=== PATIENT | female | born 2005 | race Caucasian/White ===

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

== ENCOUNTER 2024-08-09 17:02 | Emergency (ER) | payer OTHER, SELFPAY ==
--- NOTE | 2024-08-09 17:06 | ED.URI ---
HPI - URI/Sore Throat General Chief Complaint: Unspecified Stated Complaint: light headed / dizzy Time Seen by Provider: 08/09/24 17:05 Source: patient Mode of arrival: ambulatory Limitations: no limitations History of Present Illness HPI Narrative: Radhika is a 19 year old female patient presenting to the clinic today with c/o lightheadedness and dizziness x1 day. She reports symptoms started yesterday and she got worse this morning. Just started taking mifepristone yesterday at planned parent tenng[facility] to abort her 9 week 2 day . Denies any abdomen pain, pelvic pain, vaginal discharge, or bleeding. Has had a headache x 1 week and muscle tightness in her mid upper back. Is under a lot of stress. Denies any fever, chills, or body aches but, feels lightheaded and fatigue. Did have some nausea/vomiting but that came with her . No vomiting recently. Denies any urinary symptoms or uri symptoms. No chest pain or shortness of breath. No history of migraine headache. Has been taken Tylenol for the head ache without relief. Related Data Home Medications ?Medication ?Instructions ?Recorded ?Confirmed ?Last Taken ?Type alprazolam 0.5 mg tablet mg 08/09/24 Unknown History fluoxetine 10 mg capsule mg 08/09/24 Unknown History Allergies Allergy/AdvReac Type Severity Reaction Status Date / Time No Known Allergies Allergy Verified 08/09/24 17:18 Review of Systems Review of Systems: Pertinent positives per HPI. Patient denies any fever, chills, rash, visual changes, dizziness, cough, runny nose, sore throat, shortness of breath, chest pain, palpitations, diarrhea, constipation, abdominal pain, or any urinary issues. PMFSH Comments At the time of my signature, I reviewed and agree with the nursing past medical, surgical, social, and family history. There is no relevant family history pertinent to the patient complaint. Exam Narrative: General: Well-developed, well nourished, in no apparent distress Head: Normocephalic, atraumatic Eyes: Pupils equally round and reactive to light bilaterally, EOM intact, sclera and conjunctive clear, no discharge, lids normal Ears: TMs intact and clear, ear canals clear, no drainage, grossly hearing normal. Nose: Nares patent, no discharge, no inflammation, no sinus tenderness. Mouth: Oropharynx without lesions or masses, good dentition, MMM. Tongue midline, even rise and fall of uvula Neck: Supple, trachea midline, no enlargement of anterior or posterior cervical nodes, no thyroid masses or goiter palpable. Cardio: Regular rate and rhythm, s1 and s2 normal, no murmur appreciated. Resp: Clear to auscultation bilaterally anteriorly and posteriorly, no rhonchi, rales, wheezing or rubs Abdomen: Soft, pliable, nondistended, bowel sounds present all 4 quadrants, nontender to palpation, no organomegaly, no CVAT tenderness Musculoskeletal: No deformity, non-tender to palpation, grossly normal range of motion, muscle strength strong and equal, peripheral pulse strong, no edema, no cyanosis, normal gait and station Neuro: Alert and oriented x4 with normal speech, no focal deficits, cranial nerves I through XII intact, muscle strength 5 out of 5, sensation intact bilaterally, negative Romberg test Course Course Emergency Course: Portions of this record may have been created with voice recognition software. Level of Care: Express Care Visit Vital Signs Vital signs: Vital Signs Temperature 36.1 C L 08/09/24 17:18 Pulse Rate 92 08/09/24 17:18 Respiratory Rate 15 08/09/24 17:18 Blood Pressure 117/70 08/09/24 17:18 Pulse Oximetry 100 08/09/24 17:18 Oxygen Delivery Room Air 08/09/24 17:18 Temperature 36.1 C L 08/09/24 17:18 Pulse Rate 91 08/09/24 17:48 Respiratory Rate 15 08/09/24 17:18 Blood Pressure 113/68 08/09/24 17:48 Pulse Oximetry 100 08/09/24 17:18 Oxygen Delivery Room Air 08/09/24 17:18 Vital signs reviewed MDM - URI/Sore Throat MDM Narrative Medical decision making narrative: At the time of visit patient is resting comfortably on the exam table. Patient appears to be nontoxic. Labs: Blood sugar was 92 in the clinic today, U/A dip shows a trace of bacteria. We will send for culture Orthostatics B/Ps: Lying blood pressure was 112/58 with heart rate of 75, Sitting blood pressure was 117/67 with heart rate 79, Standing blood pressure was 113/68 with heart rate of 91 Plan: Her symptoms are likely side effects being caused by the mifepristone. Also she is under a lot of stress that can be causing the headache/muscle tension. Neuro checks are normal. VS are stable. She denies any CP/SOB/visual changes. No URI symptoms or ear infection. Denies any vaginal bleeding, cramping, abdomen pain, or low back pain. Supportive measures were discussed with the patient and they voiced understanding discharge instructions and agrees to treatment plan. Return precautions reviewed Differential Diagnosis Differential diagnosis: Likely upper respiratory infection, sinusitis and other (Dizziness, weakness, fatigue, side effects from medication, dehydration) Lab Data Labs: Lab Results 08/09/24 08/09/24 Range/Units 17:39 18:02 POC Capillary Glucose 92 (65-105) mg/dl POC Urine Color Dark POC Urine Clarity Cloudy POC Urine pH 6.0 POC Ur Specif [place] 1.030 POC Urine Protein Negative (Negative) POC Ur Glucose (UA) Negative (Negative) POC Urine Ketones Negative (Negative) POC Urine Blood Negative (Negative) POC Urine Nitrite Negative (Negative) POC Urine Bilirubin Negative (Negative) POC Urine Urobilinogen 0.2 POC U Leukocyte Esteras Trace (Negative) Discharge Plan Discharge Clinical Impression: Dizziness Acute tension headache Qualifiers: Intractability: not intractable Qualified Code(s): G44.209 - Tension-type headache, unspecified, not intractable Fatigue Qualifiers: Fatigue type: unspecified Qualified Code(s): R53.83 - Other fatigue Patient Disposition: Home, Self-Care Condition: Stable Instructions: Antibiotic Form, Tension Headache (ED), Dizziness (ED) Additional Instructions: The mifepristone medication may be causing her symptoms Neuro exam is normal in the clinic today Blood sugar was 92 which is within normal limits Orthostatic blood pressures were within normal limits Urinalysis shows a trace of bacteria. Will send for culture if this comes back positive we will contact him place you on antibiotics at that time Take medications as prescribed-naproxen as needed for the headache and meclizine as needed for dizziness Increase fluids and stay well hydrated Change positions slowly when going from a lying to sitting/send a to standing position Eat well-balanced meals Follow-up with your primary care doctor next week if symptoms persist May go to the emergency room if symptoms worsen. Patient Language: Citizen Of [place] Prescriptions: New naproxen 500 mg tablet 500 mg PO BID PRN (Reason: pain) 7 Days Qty: 14 0RF meclizine 25 mg tablet 25 mg PO TID PRN (Reason: dizziness) 7 Days Qty: 21 0RF No Action alprazolam 0.5 mg tablet fluoxetine 10 mg capsule Follow-up/Referrals: UNKNOWN,DOCTOR [Non-Staff] - Time of Disposition: 18:08 Quality NIHSS Nursing Documentation ED NIHSS nursing documentation: reviewed/agree
--- OUTSIDE RECORDS SUMMARY | 2024-08-09 17:09 | XMS_ITS | Clinical Summary ---
Author Organization [facility] Address [address] [place] [address] Care Team Providers Care Ux Designer Name Role Phone Grace Dickinson Primary Care Provider [phone] Allergies No known active allergies Medications vitamin ferrous fumarate-folic () 28 mg iron- 800 mcg tablet Take 1 tablet by mouth daily 30 tablet 09/20/19 24 025 Active pyridoxine (VITAMIN B6) 25 mg tablet Take 1 tablet (25 mg total) by mouth daily 90 tablet 1 09/20/19 24 025 Active ondansetron ODT (ZOFRAN-ODT) 4 mg disintegrating tablet Take 1 tablet (4 mg total) by mouth every 8 (eight) hours as needed for nausea or vomiting 20 tablet 1 09/20/19 24 Active Vitamin Plus Low Iron 27 mg iron- 1 mg tablet Take 1 tablet by mouth daily 09/21/19 24 Active famotidine (PEPCID) 20 mg tabletIndications: Gastroesophageal reflux disease without esophagitis Take 1 tablet (20 mg total) by mouth 2 (two) times a day 60 tablet 11/13/19 24 025 Active acetic acid-hydrocortison e otic solution Administer 2 drops into the right ear 2 (two) times a day 10 mL 1 01/17/20 24 Active Additional Information Patient not taking.Reported on 02/21/2024 hydrOXYzine (ATARAX) 25 mg tabletIndications: anxiety Take 1 tablet (25 mg total) by mouth 3 (three) times a day as needed for anxiety 30 tablet 1 03/17/20 24 Active senna-docusate (PERICOLACE) 8.6-50 mg Take 1 tablet by mouth daily Do not take if having diarrhea 30 tablet 03/17/20 24 Active polyethylene glycol (MIRALAX) 17 gram/dose bulk powder Take 17 g by mouth daily As needed to have one bowel movement daily. 510 g 03/17/20 24 Active ibuprofen (ADVIL,MOTRIN) 600 mg tabletIndications: Pain Take 1 tablet (600 mg total) by mouth every 6 (six) hours as needed for pain for up to 30 doses 30 tablet 03/17/20 24 Active acetaminophen (TYLENOL) 500 mg tablet Take 2 tablets (1,000 mg total) by mouth every 6 (six) hours as needed for pain for up to 30 doses 60 tablet 03/17/20 24 Active escitalopram (LEXAPRO) 5 mg tabletIndications: Generalized Anxiety Disorder Take 1 tablet (5 mg total) by mouth daily 30 tablet 1 04/05/20 24 Active labetaloL (NORMODYNE,TRANDAT E) 200 mg tablet Take 2 tablets (400 mg total) by mouth 2 (two) times a day 120 tablet 1 04/05/20 24 025 Active FLUoxetine (PROzac) 20 mg capsule Take 1 capsule (20 mg total) by mouth daily 30 capsule 08/09/19 25 026 Active Active Problems Problem Noted Date Diagnosed Date Encounter for routine follow-up 04/02 Overview (04/02/2024): -Continue limited physical activity and pelvic rest. -Mood- Stable and adjusting well Discussed s/s of baby blues, depression, & anxiety; Encouraged to call provider with any mood changes or concerns. -Contraception- Declined conversation today; Patient would like to discuss further at 6 week visit -F/U- RTC for 6 week appt 04/25/24 care following vaginal delivery 03/15 Overview (03/17/2024): # ID: Afebrile. No signs/symptoms of infection. # Enterobacter cloacae UTI in 2T, JONATHAN CIS # Heme: EBL 300 mL. Hemodynamically stable. gTCP: platelets stable, most recently 130k prior to discharge # Chest pain- >2yrs of chronic chest pain. S/p stress treadmill test (negative 07/2023) and normal echo 09/2023. Saw cardiology (Dr. Lopez) on 03/11/24 who recommended additional echo but unable to facilitate during admission. Information provided to patient on discharge to schedule echo as outpatient. EKG 03/17 NSR. # CV/Pulm: Chronic hypertension - Blood pressures well controlled on no meds. Asymptomatic, denies WINTERS/RUQ pain/vision changes. Baseline CBC/CMP wnl, UPC 0.118 on 02/01. Enrolled in home BP. # Anxiety: not on meds. Prescribed atarax 25mg prn on discharge. # GI/: Tolerating PO. Voiding spontaneously. # Pain: Controlled with above regimen. # MOC: Undecided on contraception after counseling, to discuss at 6wk PP visit. Declines EC. # MOF: Both formula and . Urine drug screen not indicated. Patient informed of results: N/A. # Post DVT prophylaxis: The patient has the following MAJOR risk factors none and the following MINOR risk factors BMI 30-39. SCDs ordered for VTE prophylaxis. # Disposition: Follow up task sent. Plan for discharge today. Encounter for induction of labor 03/13/2024 Overview (03/13/2024): Radhika Qureshi is a 18 y.o. female at 39w0d who is dated by L=1 and is being admitted for an induction of labor secondary to cHTN . Admit to L&D: Labs: CBC and T&S pending. Induction of labor with miso>FB . FWB: Continuous monitoring. tracing category I. ID: 3rd trimester HIV (>28 wga) negative on 02/14/24. GBS bacteruria 06/2023, will start PCN. RPR on admission: pending. History of genital HSV or HSV 1/2 seropositivity: No. Membrane Status: intact. Indications for UDS: none. Verbal consent obtained for UDS: Not indicated. MOF: Plans to both breast and formula feed. Urine drug screen not indicated. Patient informed of results: N/A. MOC: Undecided on contraception after counseling, to discuss at 6wk PP visit. Pain management: Desires epidural. Post DVT prophylaxis: The patient has the following MAJOR risk factors none and the following MINOR risk factors BMI 30-39. SCDs will be ordered for VTE prophylaxis . 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 S/p stress treadmill test (negative 07/2023) and normal echo 09/2023. Saw cardiology (Dr. Lopez) on 03/11/24 who recommended additional echo but unable to facilitate scheduling prior to admission. Abdominal pain 01/03/2024 Overview (01/03/2024): - Reports left-sided generalized abdominal tightening, now resolved - Worse after being outside in summer - Also reporting sciatic nerve pain down leg - UA unremarkable, no reflex to culture - SVE .5/lg/hi Plan - SVE reassuring in clinic. Reviewed BH contractions vs [facility] precautions (no improvement with rest, hydration and Tylenol). - Discussed staying hydrated in heat, using APAP, belly band and heat packs on back for sciatic pain. - Reviewed return precautions Ear pain, right 01/03/2024 Overview (01/17/2024): - Reports one day of right ear pain - Exam with e/o wax and small scab. - Reviewed not using Q-tips and avoiding trauma to canal. - No c/f middle ear infection 01/16- Reports persistent right ear pain. Drops for acetic acid and hydrocortisone sent. Chronic hypertension affecting 10/18/ 024 Overview (02/21/2024): Per chart review: 09/17 BP in [place] 144/78 -10/18: BP 142/75, repeat manual 130/70. Pt now meeting criteria for cHTN in diagnosis. Protocol initated. - 01/01: Reports BPs well controlled (<140/<90) Counseling date: 10/18 CURRENT REGIMEN: ASA 81 mg daily until delivery Maternal Surveillance: [x] Baseline Plt:182 K+:3.7 Cr: 0.64 ALT/AST: [x] Urine Protein/Creatinine Ratio: 10/18 [x] Baseline ECG with consideration of ECHO: (consider ECHO if diagnosed >4y rs or >30 yo) [] Ophthalmology referral: [x] Provide blood pressure cuff at initial visit with calibration (within 20 mm Hg of manual BP in clinic), blood pressure log given - call clinic if BP >140/90. Review log each visit. [x] Educated on ASA 81 mg daily 12 weeks until delivery. 01/30- Rx resent. Encouraged ASA daily remainder of . Surveillance: [x] Serial Growth ultrasounds every 4 weeks-start at 24 weeks. (Ordered) 02/13: EFW 2357g(24%) AGA [] Once Weekly NSTs starting at 32 weeks if on AntiHTN Agent (IF Ultrasound scheduled can do BPP that week instead). [x] Delivery at 39 weeks - scheduled 03/13 @ 1999 Cystic fibrosis carrier 10/02/2023 Overview (11/13/2023): -Referred to OB genetic counselor, recommend partner screening Partner testing negative Carrier of spinal muscular atrophy 10/02/2023 Overview (11/13/2023): -Referred to OB genetic counselor, recommend partner screening Partner testing negative. Bacteriuria 09/20/2023 Overview (02/19/2024): -09/19: +nitrites on UA, trace leuks. Asymptomatic. Urine culture ordered. +enterbacter cloacae complex. -Rx Bactrim DS BID x 5 days 10/18: JONATHAN CIS 01/02: UA nl [x] obtain 3T UCx - contaminated Supervision of normal first , antepartu m 08/21/2023 Overview (03/11/2024): Plan -PNV daily. Encouraged ASA. -WAC precautions reviewed 1st Trimester: [x] Dating Criteria: 1TUS @ 9w1d [x] Labs: T&S (Ab):A+(neg) H/H:12.4/36.2 Rubella:imm VZV:imm HIV:neg RPR:neg Hep B:neg Hep C:neg [x] HgbA1c: 4.9 [] NG/CT/Trich: [x] UCx: Enterobacter cloacae complex [] Hgb electrophoresis: Date [x] Pap: N/A <21 [x] Panorama: low risk, NIPt [x] Carrier Screen: carrier SMA, cystic fibrosis [x] ASA at 12 weeks (if indicated) - rx sent 10/18 [] Feeding Preferences Survey: benefits of discussed with patient at RN IOB 2nd Trimester: [x] Anatomy ultrasound: nml [x] Placenta: posterior [x] H/H: Plt: 10.8, 177 RPR: nr [x] 1hr GTT (24-28wks): 87 [] PNBHS referral (if indicated): EPDS= [] Second/Third trimester education packet given - (Date) [] Flu Shot (Feb-May): N/A [x] Tdap (27-36wks): 01/02/24 [] Rhogam (if Rh neg): A+ [] RSV Vaccine 32-36 weeks [x] Childbirth classes discussed [x] education (colostrum, expected breast changes). 3rd Trimester: [x] H/H: 11.2/33.7 Plt:173 HIV:neg RPR:neg T&S: A+(neg) [x] GBS: Neg [x] NG/CT: Neg/Neg Trich: Neg [x] Final discussion-Discussed Baby Friendly-skin to skin, rooming in, support, formula safety. [x] Breast Pump order form provided: 02/13 Counseling: [x] Discussed anticipated weight gain in [x] Method of delivery: Anticipate vaginal [] Bottle of CHG 4% and hand out provided @ 36wks (if planned) [x] Timing of delivery: 39w - 03/13 @ 1999 [x] Method of Feeding: Discussed baby friendly, skin to skin, rooming in, support. Formula safety. [] COVID-19 vaccine: [x] education: completed in all 3 trimesters [x] Method of Contraception: Plans to wait to discuss at 6wk PP [x] Start Up Specialist: Discussed [x] Car seat discussed [x] PP depression counseling Last visit: [x] Last clinic visit SVE: declined [x] IOL start agent: misoprostol/sharp balloon [x] Epidural: [] Consents signed: Anxiety and depression 01/31/2023 Overview (03/06/2024): -Hx of anxiety and depression. Denies SI. Previously started on Prozac and hydroxyzine, which she discontinued after two weeks. Declines medications at this time. We discussed pt reports of tick , which could be related to anxiety. -Plan for EPDS q visit 09/19: EPDS=15. Denies SI/HI. Rx Zoloft 25mg PO daily. 10/18: Pt has decided not to start Zoloft. Mood has been stable. Referral to behavioral health 01/30: Stable, no meds. EPDS=3 02/20: Mood has been stable. 03/06: Mood is stable Assessment & Plan (01/31/2023 9:14 AM CDT): Chronic. Mild depression and moderate anxiety. Uncontrolled. Start treatment with fluoxetine. Discussed actions/SE of anxiety and depression medications. May feel worse before feeling better. The pharmacologic and nonpharmacologic treatment of anxiety/depression were discussed with the patient. Included was a discussion of the current treatment regimens and their proposed mechanism of action concerning brain chemistry. Discussed the role of counseling as an adjunct to medications should we agree to pursue this. The patient denies suicidal or homicidal ideation and should this change, they agreed to inform us immediately or seek medical attention in the emergency room setting. Panic attacks 01/31/2023 Assessment & Plan (01/31/2023 9:14 AM CDT): Chronic. Uncontrolled. Start treatment with lorazepam as needed. The patient has been informed that using opioids increases their risk of of unintentional overdose (0.25%). In addition, it was again reviewed with them that opioid use has the following associated risks: addiction, respiratory depression, confusion, constipation, drowsiness, itching, nausea and sexual dysfunction. They understood the risks. They were offered the opportunity to wean the opioids. They decided the benefits from these medications outweigh the risks and have decided to continue with this care Psychophysiological insomnia 01/31/2023 Assessment & Plan (01/31/2023 9:14 AM CDT): Chronic. Uncontrolled. This may be related to irregular sleep schedule, uncontrolled anxiety and depression, or several other etiologies. - start melatonin 3-5 g nightly - advise regular sleep schedule, regular exercise IBS (irritable bowel syndrome) 11/24/2021 Chest pain 11/24/2021 Resolved Problems Problem Noted Date Diagnosed Date Resolved Date Bacterial vaginosis 01/03/2024 02/14/20 24 Overview (01/03/2024): - Diagnosed in [facility] on 12/18 - Unable to flower picker script for Flagyl at pharmacy - Rx resent today BV (bacterial vaginosis) 08/22/2023 Overview (08/22/2023): -Rx metrogel IV cream nightly x 5 nights -Avoid [place] until after completion of all medication. -Discussed avoiding bubble baths, perfume scented soaps, lotions in vagina. -Encouraged use of mild soap (such as unscented Dove) and water over pubic area. Yeast infection 05/15/2023 08/22/2023 Overview (05/16/2023): Patient presents with increasing vaginal discharge and vaginal irritation, with foul smelling discharge and odor with urination. Recent history notable for patient being treated 05/11/23 at an OSH ED with fluconazole and metronidazole for yeast and BV respectively. STD testing at this time per patient report was negative. Exam 05/15/23 notable for thick white discharge coating the vagina, wet prep notable for +budding yeast/pseudohyphae with pH 4.0. Plan: - Rx sent for fluconazole x1 dose, with 1 refill if persistent symptoms within 1 week of treatment - Discussed environmental changes that can cause yeast recurrence, including scented soaps, non-cotton underwear, shaving, intercourse, and recent menstrual cycles - Also discussed how to prevent recurrence, of which patient voiced understanding Annual physical exam 01/31/2023 024 Overview (01/31/2023): PMH: Last pap: Last mammogram: Last dexa: Last colonoscopy/cologuard: Last Hep C: Last tdap: 02/2017 Last Prevnar/pneumovax: Last Shingrix: Last eye exam: Abdominal pain, generalized 03/30/2022 08/22/2023 Overview (03/30/2022): Added automatically from request for surgery [id number] Assessment & Plan (01/31/2023 9:13 AM CDT): Chronic. Uncontrolled could be related to anxiety and depression, has had workup with Gynecology possible myofascial pain/ pelvic floor dysfunction. May need pelvic ultrasound. May need GI referral. Need to discuss further at next visit or when anxiety is more under control. Encounters Date Type Department Care Team Description 08/09/2024 12:33 AM PUBLIC INFORMATION RELATIONS MANAGER - 08/09/2024 2:43 AM [facility] Emergency [facility] Emergency Department [address] [place] [phone] David Christine MD Acute non intractable tension-type headache (Primary Dx) Discharge Disposition: Discharge to home or self care 08/02/2024 [facility] ED Outreach [facility] Accountable Care [address] [phone] Aston Coronel LPN 08/01/2024 [facility] ED Out[facility] Care [address] [address] Aston Coronel LPN 07/31/2024 [facility]ATH[facility] ED Out[facility] Care [address] [address] Aston Coronel, JARETT 07/26/2024 1:44 PM PUBLIC INFORMATION RELATIONS MANAGER - 07/26/2024 4:14 PM [facility] Emergency [facility] Emergency Department [address] [place] [phone] Chronic chest pain (Primary Dx) Discharge Disposition: Discharge to home or self care from Last 3 Months Immunizations Name Administration Dates Next Due DTP 01/29/2010,05/20/2005,01/04/2005 ,2004 DTaP 06/05/2006 DTaP / Hep B / IPV 05/20/2005,01/04/2005, 005 DTaP / IPV 01/29/2010 HPV9 03/15/2017 Hep A, Pediatric 04/16/2007,06/05/2006 Hep B, Adolescent or Pediatric 2004 Hep B, Unspecified 05/20/2005,01/04/2005, 005 Hib (PRP-OMP) 06/05/2006,05/20/2005,01/04/2005 ,2004 Influenza, Split 05/20/2005 Influenza, Unspecified 03/26/2022(Deferr ed: Patient decision),03/26/2021(Deferred: Patient decision) MMR 01/29/2010,05/20/2005 Meningococcal MCV4P (Menactra) 03/15/2017 Pneumococcal Conjugate 7-Valent 06/05/2006,01/04,2004 Tdap 01/02/2024,03/15/2017 Varicella 01/29/2010,05/20/2005 Medical History Medical History Date Comments Anxiety Ovarian cyst Depressed Family History Medical History Relation Name Comments No Known Problems Brother 1 No Known Problems Brother 2 No Known Problems Brother 3 No Known Problems Father Diabetes Maternal Grandfather Heart attack Maternal Grandfather Heart disease Maternal Grandfather Sudden Cardiac Maternal Grandfather No Known Problems Maternal Grandmother Heart attack Maternal Great-Grandfather Sudden Cardiac Maternal Great-Grandfather Diabetes Mother Diabetes Mother's Brother No Known Problems Paternal Grandfather No Known Problems Paternal Grandmother No Known Problems Sister 1 No Known Problems Sister 2 Relation Name Status Comments Brother 1 Alive Brother 2 Alive Brother 3 Alive Father Alive Maternal Grandfather Maternal Grandmother Alive Maternal Great-Grandfather Alive Mother Alive Mother's Brother Paternal Grandfather Alive Paternal Grandmother Alive Sister 1 Alive Sister 2 Alive Social History Tobacco Use Types Packs/Day Years Used Date Smoking Tobacco: Never Smokeless Tobacco: Never Tobacco Cessation:Counseling Given: Not Answered Alcohol Use Standard Drinks/Week Comments Yes 0 (1 standard drink = 0.6 oz pur e alcohol) socially [facility] Utilities Answer Date Recorded In the past 12 months has th e electric, gas, oil, or water Exam18 threatened to shut off services in your home? No 03/16/2024 Humiliation, Afraid, Rape, and Kick questionnair e Answer Date Recorded Within the last year, have y ou been afraid of your partner or ex-partner? No 08/21/2023 Within the last year, have y ou been humiliated or emotionally abused in other ways by your partner or ex-partner? No Within the last year, have y ou been kicked, hit, slapped, or otherwise physically hurt by your partner or ex-partner? No 08/21/2023 Within the last year, have y ou been raped or forced to have any kind of sexual activity by your partner or ex-partner? No 08/21/2023 Social Connection and Isolat ion Panel [NHANES] Answer Date Recorded In a typical week, how many times do you talk on the phone with family, friends, or neighbors? More than three times a week 03/16/2024 How often do you get togethe r with friends or relatives? More than three times a week 03/16/2024 How often do you attend chur or alevism services? Patient declined 03/16/2024 Do you belong to any clubs o r organizations such as orthodoxy groups, unions, fraternal or athletic groups, or school groups? Patient declined 03/16/2024 How often do you attend meet ings of the clubs or organizations you belong to? Patient declined 03/16/2024 Are you , , di vorced, , never , or living with a partner? Living with partner 03/16/2024 AUDIT-C Answer Date Recorded Q1: How often do you have a drink containing alcohol? Never 08/22/2023 Q2: How many drinks containi ng alcohol do you have on a typical day when you are drinking? Patient does not drink Q3: How often do you have si x or more drinks on one occasion? Never 08/22/2023 Overall Financial Resource Strain (CARDIA) Answe r Date Recorded How hard is it for you to pa y for the very basics like food, housing, medical care, and heating? Not hard at all 03/16/2024 PHQ-2 Answer Date Recorded PHQ-2 Total Score (If total score is 3 or more points, staff should administer the PHQ-9) 2 01/31/2023 [employer] [place] [facility] Occupat ional Health - Occupational Stress Questionnaire Answer Date Recorded Do you feel stress - tense, restless, nervous, or anxious, or unable to sleep at night because your mind is troubled all the time - these days? Only a little 08/21/2023 Exercise Vital Sign Answer Date Recorde d On average, how many days pe r week do you engage in moderate to strenuous exercise (like a brisk walk)? 0 days Minutes of Exercise per Session Not on file 08/21/2023 Hunger Vital Sign Answer Date Recorded Within the past 12 months, y ou worried that your food would run out before you got the money to buy more. Never true 04/02/20 24 Within the past 12 months, t he food you bought just didn't last and you didn't have money to get more. Never true 04/02/2024 PRAPARE - Transportation Answer Date Re corded In the past 12 months, has l ack of transportation kept you from medical appointments or from getting medications? No 02/25 In the past 12 months, has l ack of transportation kept you from meetings, work, or from getting things needed for daily living? No 03/16/2024 Housing Stability Vital Sign Answer Danny e Recorded In the last 12 months, was t here a time when you were not able to pay the mortgage or rent on time? No 08/21/2023 Number of Places Lived in the Last Year Not on f ile 08/21/2023 In the last 12 months, was t here a time when you did not have a steady place to sleep or slept in a half-way (including now)? No 08/21/2023 Dittmer Depression Scale Answer Date Recorded Dittmer Depression Scale Total 2 04/02/2024 The thought of harming myself has occurred to me . Never 04/02/2024 Housing Stability Vital Sign Answer Danny e Recorded In the last 12 months, was t here a time when you were not able to pay the mortgage or rent on time? No 03/16/2024 In the past 12 months, how m any times have you moved where you were living? 1 03/16/2024 At any time in the past 12 m [facility] were you homeless or living in a half-way (including now)? No 03/16/2024 Personal Safety Answer Date Recorded Have you ever been in or are you currently in a harmful physical or emotional relationship or is someone making you feel afraid or unsafe? Denies 08/08/2024 Comments No Sex and Gender Information Value Date Recorded Sex Assigned at Not on file Legal Sex Female 7:02 PM PUBLIC INFORMATION RELATIONS MANAGER Gender Identity Not on file Sexual Orientation Not on file Obstetrics History Para Term AB IAB SAB Ectopic Multiple Livin g Live Births 2 1 1 1 1 0 1 1 Date Outcome GA Total Labor Labor/2nd/3rd Weight Sex Type Anes PTL Iram A1 A5 Name Clin 2022 SAB SAB 2023 Term 39w 2d 26h 08m 25h 33m/0h 33m/0h 02m 3.01 kg (6 lb 10.2 oz) F Vagina l Epidur al N Livin g 6 9 Rachael ruvalcaba, Adrian power MD Complications:None Delivery Location:[facility] Main C ampus ([facility]LD) Comments G1: pt would like history to be kept private Last Filed Vital Signs Vital Sign Reading Time Taken Comments Blood Pressure 125/85 08/08/2024 9:01 PM PUBLIC INFORMATION RELATIONS MANAGER Pulse 103 08/08/2024 9:01 PM PUBLIC INFORMATION RELATIONS MANAGER Temperature 36.8 C (98.2 F) 08/08/2024 9:01 PM PUBLIC INFORMATION RELATIONS MANAGER Respiratory Rate 22 08/08/2024 9:01 PM PUBLIC INFORMATION RELATIONS MANAGER Oxygen Saturation 95% 08/08/2024 9:01 PM PUBLIC INFORMATION RELATIONS MANAGER Inhaled Oxygen Concentration - - Weight 81.6 kg (180 lb) 08/08/2024 9:01 PM PUBLIC INFORMATION RELATIONS MANAGER Height 165.1 cm (5' 5 ) 07/26/2024 1:07 PM PUBLIC INFORMATION RELATIONS MANAGER Body Mass Index 29.95 07/26/2024 1:07 PM PUBLIC INFORMATION RELATIONS MANAGER Plan of Treatment Health Maintenance Due Date Last Done Comments HPV Vaccines (2 - 2-dose series) 09/12/2017 03/15/2017 Meningococcal B Vaccine (1 of 2 - Patient Seeks Protection) 2020 Regular Well Visit/Exam 18-64 2022 Covid-19 Vaccine (2 - season) 2024 04/03/2021 Influenza Vaccine (#1) 2024 05/20/2005 Depression Screening 04/02/2025 04/02/2024, 01/31/2023, 01/31/2023 Chlamydia and Gonorrhea (GC/CT) Screening 04/11/2025 04/11/2024, 02/21/2024, 12/02/2021 DTaP/Tdap/Td Vaccine (8 - Td or Tdap) 01/01/2034 01/02/2024, 03/15/2017, 01/29/2010, Additional history exists Hepatitis B Screening Completed 05/20/2005 , 05/20/2005, 01/04/2005, Additional history exists Pneumococcal vaccine <65 Completed 006, 01/04/2005, 2004 Varicella Vaccines Completed 01/29/2010, 05/20/2005 Meningococcal Vaccine Aged Out 03/15/2017 No maki najma eligible based on patient's age to complete this topic Hepatitis C Screening Completed 08/21/2023 Procedures Procedure Name Priority Date/Time Associated Diagnosis Comments ECG 12-LEAD STAT 07/26/2024 2:48 PM PUBLIC INFORMATION RELATIONS MANAGER XR CHEST PA LATERAL 2 VIEWS ED 07/26/2024 2:31 PM PUBLIC INFORMATION RELATIONS MANAGER EGFR STAT 07/26/2024 2:13 PM PUBLIC INFORMATION RELATIONS MANAGER DIFFERENTIAL AUTO STAT 07/26/2024 2:1 3 PM PUBLIC INFORMATION RELATIONS MANAGER TROPONIN I HIGH-SENSITIVITY SERIES (BASELINE, 2HR, 4HR, 6HR) STAT 07/26/2024 2:13 PM PUBLIC INFORMATION RELATIONS MANAGER COMPREHENSIVE METABOLIC PANEL STAT 07/26/2024 2:13 PM PUBLIC INFORMATION RELATIONS MANAGER CBC WITH AUTO DIFFERENTIAL STAT 07/26/2024 2:13 PM PUBLIC INFORMATION RELATIONS MANAGER N. GONORRHOEAE/C. TRACHOMATIS AMPLIFICATION STAT 04/11/2024 8:48 PM CDT HEPATITIS C ANTIBODY Routine 08/21/2023 11:08 AM PUBLIC INFORMATION RELATIONS MANAGER Encounter for supervision of other normal in first trimester from Last 3 Months or Most Recently Relevant to Health Maintenance Results * (ABNORMAL) ECG 12-LEAD (07/26/2024 2:48 PM PUBLIC INFORMATION RELATIONS MANAGER) Narrative [facility] - 07/26/2024 2:48 PM PUBLIC INFORMATION RELATIONS MANAGER Colton Michelle MD 07/26/2024 2:52 PM ECG 12 lead Date/Time: 07/26/2024 2:48 PM Performed by: Colton Michelle MD Authorized by: Marlene Naqvi MD Rate: ECG rate: 89 ECG rate assessment: normal Rhythm: Rhythm: sinus rhythm Ectopy: Ectopy: none QRS: QRS axis: Normal QRS intervals: Normal Conduction: Conduction: normal ST segments: ST segments: Normal T waves: T waves: non-specific Previous ECG: Previous ECG: Compared to current Date of previous EC03/21/2024 Comparison ECG info: Precordial NATs are more prominent Interpretation: Interpretation: abnormal Recommended Follow-up: Recommended follow up: further workup in the ED Comments: Low risk of ACS us Marlene Naqvi MD ECG ORDERABLES Final Result [facility] * XR Chest Pa Lateral 2 Vw (07/26/2024 2:31 PM PUBLIC INFORMATION RELATIONS MANAGER) Anatomical Region Laterality Modality Body, Chest N/A Computed Radiogr aphy 07/26/2024 2:58 PM PUBLIC INFORMATION RELATIONS MANAGER Impressions 07/26/2024 2:58 PM PUBLIC INFORMATION RELATIONS MANAGER A 2 view examination the chest is submitted with comparison 02/08/2023. No pneumonic consolidation. No pulmonary edema. No pneumothorax. No pleural effusion. Heart size normal. Electronically signed by: Triston Teresa M.D., Ph.D Narrative 07/26/2024 2:58 PM PUBLIC INFORMATION RELATIONS MANAGER EXAMINATION: 2 view chest radiograph Procedure Note Triston Teresa MD PhD - 07/26/2024 EXAMINATION: 2 view chest radiograph IMPRESSION: A 2 view examination the chest is submitted with comparison 02/08/2023. No pneumonic consolidation. No pulmonary edema. No pneumothorax. No pleural effusion. Heart size normal. Electronically signed by: Triston Teresa M.D., Ph.D us Susi RAHMAN IMG XR PROCEDURES Final Res ult * Troponin I high-sensitivity series (baseline, 2hr, 4hr, 6hr) (07/26/2024 2:13 PM PUBLIC INFORMATION RELATIONS MANAGER) Trop I hs <4 <=17 ng/L Comment: Interpretive Data For further hscTnI resources including the diagnostic algorithm and an aid in interpretation, copy and paste this link: [email or web address].testcatalog.org/show/[email or web address] Current Interpretive Data last revised 2020. Blood 07/26/2024 2:13 PM PUBLIC INFORMATION RELATIONS MANAGER 07/26/2024 2:24 PM PUBLIC INFORMATION RELATIONS MANAGER Susi RAHMAN LAB BLOOD ORDERABLES Final Result Performing Organization Address City/State/[facility] Co de Phone Number [facility] [place] [address] * eGFR (07/26/2024 2:13 PM PUBLIC INFORMATION RELATIONS MANAGER) Pathologist [facility] eGFR >90 >=60 mL/min/1. 73 m2 Comment: Interpretive Data Reference Interval Normal >/= 90 mL/min/1.73m2 Mildly decreased* 60 - 89 mL/min/1.73m2 Mildly to moderately decreased 45 - 59 mL/min/1.73m2 Moderately to severely decreased 30 - 44 mL/min/1.73m2 Severely decreased 15 - 29 mL/min/1.73m2 Kidney Failure < 15 mL/min/1.73m2 *Relative to young adult level Estimated glomerular filtration rate is determined by the 2020 CKD-EPI equation recommended by the National Kidney Foundation (A Unifying Approach to GFR Estimation: Recommendations of the NKF-ASK Task Force on Reassessing the Inclusion of Race in Diagnosing Kidney Disease, JASN 2020). The CKD-EPI equation should not be used for patients with unstable renal function and has not been validated in children and those over 70. Current interpretive data was last reviewed 2021. Blood 07/26/2024 2:13 PM PUBLIC INFORMATION RELATIONS MANAGER 07/26/2024 2:24 PM PUBLIC INFORMATION RELATIONS MANAGER Susi RAHMAN LAB BLOOD ORDERABLES Final Result [facility] [place] [address] * Differential, auto (07/26/2024 2:13 PM PUBLIC INFORMATION RELATIONS MANAGER) Neutrophil abs 4.9 1.5 - 6.5 K/cumm Imm gran abs 0.0 0.0 - 0.1 K/cumm [facility] Lymphocyte abs 1.7 0.8 - 3.3 K/cumm [facility] Monocyte abs 0.3 0.2 - 0.8 K/cumm [facility] Eosinophil abs 0.1 0.0 - 0.5 K/cumm [facility] Basophil abs 0.0 0.0 - 0.1 K/cumm [facility] Neutrophil pct 69.9 % [facility] Comment: Confirmed by smear review Interpretive Data Percent cell count reference ranges are not reported, since discordance with absolute values may lead to misinterpretation of CBC data. Current Interpretive Data was last revised on 2017. Imm gran pct 0.3 % [facility] Comment: Interpretive Data Percent cell count reference ranges are not reported, since discordance with absolute values may lead to misinterpretation of CBC data. Current Interpretive Data was last revised on 2017. Lymphocyte pct 24.1 % [facility] Comment: Interpretive Data Percent cell count reference ranges are not reported, since discordance with absolute values may lead to misinterpretation of CBC data. Current Interpretive Data was last revised on 2017. Monocyte pct 4.4 % [facility] Comment: Interpretive Data Percent cell count reference ranges are not reported, since discordance with absolute values may lead to misinterpretation of CBC data. Current Interpretive Data was last revised on 2017. Eosinophil pct 0.7 % [facility] Comment: Interpretive Data Percent cell count reference ranges are not reported, since discordance with absolute values may lead to misinterpretation of CBC data. Current Interpretive Data was last revised on 2017. Basophil pct 0.6 % [facility] Comment: Interpretive Data Percent cell count reference ranges are not reported, since discordance with absolute values may lead to misinterpretation of CBC data. Current Interpretive Data was last revised on 2017. Blood 07/26/2024 2:13 PM PUBLIC INFORMATION RELATIONS MANAGER 07/26/2024 2:24 PM PUBLIC INFORMATION RELATIONS MANAGER Susi RAHMAN LAB BLOOD ORDERABLES Final Result [facility] [place] [address] * (ABNORMAL) CBC with auto differential (07/26/2024 2:13 PM PUBLIC INFORMATION RELATIONS MANAGER) WBC 7.1 3.8 - 9.9 K/cumm Hgb 13.9 11.9 - 15.5 g/dL [facility] Hct 41.0 35.6 - 45.5 % [facility] Plt 182 150 - 400 K/cumm [facility] MPV 13.2(H) 9.1 - 12.3 fL [facility] RBC 4.62 3.90 - 5.20 M/cumm [facility] MCV 88.7 81.3 - 96.4 fL [facility] MCH 30.1 27.1 - 33.3 pg [facility] MCHC 33.9 32.3 - 35.7 g/dL [facility] RDW CV 13.4 11.1 - 14.9 % [facility] RDW SD 43.9 35.7 - 48.1 fL [facility] NRBC abs 0.00 0.00 - 0.01 K/cumm [facility] Blood 07/26/2024 2:13 PM PUBLIC INFORMATION RELATIONS MANAGER 07/26/2024 2:24 PM PUBLIC INFORMATION RELATIONS MANAGER Susi RAHMAN LAB BLOOD ORDERABLES Final Result [facility] [place] [address] * (ABNORMAL) Comprehensive metabolic panel (07/26/2024 2:13 PM PUBLIC INFORMATION RELATIONS MANAGER) Sodium 139 135 - 145 mmol/L Potassium, pl 4.9 3.3 - 4.9 mmol/L [facility] Comment:Hemolyzed; Potassium value may be falsely elevated by as much as 1.1-1.6 mmol/L. Suggest redraw and reanalysis. Chloride 105 97 - 110 mmol/L [facility] CO2 24 22 - 32 mmol/L [facility] Anion gap 10 2 - 15 mmol/L [facility] BUN 8 6 - 25 mg/dL [facility] Creatinine 0.70 0.60 - 1.10 mg/dL [facility] Glucose 85 70 - 199 mg/dL [facility] Comment: Interpretive Data Fasting glucose >/= 126 mg/dl is diagnostic for diabetes. Fasting is defined as no caloric intake for at least 8 hours. Fasting glucose between 100 mg/dl to 125 mg/dl is diagnostic of prediabetes. In a patient with classic symptoms of hyperglycemia or hyperglycemic crisis, a random glucose >/= 200 mg/dl is diagnostic for diabetes. In the absence of unequivocal hyperglycemia, results should be confirmed by repeat testing. The classification and Diagnosis of Diabetes Diabetes Care 2021; 46: S19-S40. Current interpretive data was last revised 2022. Calcium 9.1 8.5 - 10.3 mg/dL [facility] Bilirubin, total 0.3 0.1 - 1.2 mg/dL [facility] Protein, pl 7.3 6.5 - 8.5 g/dL [facility] Albumin 4.0 3.5 - 5.0 g/dL [facility] Alk phos 76 40 - 130 Units/L [facility] Comment:Hemolyzed; result ma y be falsely decreased ALT 17 7 - 45 Units/L [facility] AST 47(H) 10 - 45 Units/L [facility] Comment:Hemolyzed; result ma y be falsely elevated Blood 07/26/2024 2:13 PM PUBLIC INFORMATION RELATIONS MANAGER 07/26/2024 2:24 PM PUBLIC INFORMATION RELATIONS MANAGER Susi August PA LAB BLOOD ORDERABLES Final Result Performing Organization Address City/[facility] Co de Phone Number [facility] [place] [address] * N. gonorrhoeae/C. trachomatis Amplification Urine (04/11/2024 8:48 PM CDT) Pathologist [facility] C. trachomatis Not Detected Not Detected [facility] N. gonorrhoeae Not Detected Not Detected [facility] Comment: Interpretive Data This assay detects Chlamydia trachomatis and Neisseria gonorrhoeae by nucleic acid amplification testing (NAAT). This assay has been cleared by the [place] Food and Drug administration. The performance characteristics of this test have been verified by the [facility] Molecular Infectious Disease laboratory. The performance characteristics of this test have not been evaluated in individuals less than 14 years of age. Current Interpretive Data last revised 2023. Urine (None) 04/11/2024 8:48 PM CDT 04/11/2024 8:57 PM CDT Dat Reyes FOOD ADVISER LAB MICROBIOLOGY - GENER AL ORDERABLES Final Result Performing Organization Address [facility] de Phone Number [facility] Department [place] [address] [facility] * Hepatitis C antibody Blood (08/21/2023 11:08 AM PUBLIC INFORMATION RELATIONS MANAGER) Pathologist [facility] Hep C Ab Nonreactive Nonreactive [facility] Comment:Antibodies to HCV no t detected. Does NOT exclude the possibility of recent exposure to HCV. Current interpretive data was last revised on 22 Blood 08/21/2023 11:0 8 AM PUBLIC INFORMATION RELATIONS MANAGER 08/21/2023 11:39 AM PUBLIC INFORMATION RELATIONS MANAGER Shelbi Eugene FOOD ADVISER LAB MICROBIOLOGY - GENERAL O RDERABLES Final Result Performing Organization Address City/[facility] Co de Phone Number [facility] [place] [address] from Last 3 Months or Most Recently Relevant to Health Maintenance Insurance [facility] Advance Directives For more information, please contact: [phone] * Full Code (Latest Code Status on File) Date Activated Date Inactivated Comments 03/15/2024 1:52 AM 03/17/2024 7:18 PM * Full Code Date Activated Date Inactivated Comments 03/13/2024 9:40 PM 03/15/2024 1:52 AM Full CPR in case of cardiopulmonary arrest Care Teams Ux Designer Relationship Specialty Start Date End Date Grace Dickinson PA [address] [place] [address] PCP - General Family Medicine 01/31/23
--- OUTSIDE RECORDS SUMMARY | 2024-08-09 17:10 | XMS_ITS | Patient Health Summary ---
Author Organization [facility] Address [address] [place] [address] Care Team Providers Care Boiler Operator Helper Name Role Phone Brie Broussard MD Primary Care Provider [phone] Note from [facility],non-owned Affiliates and Associated Physician Practices is amultiple site organization consisting of ambulatory clinics and hospital sitesin [place], [place], [place] and [place]. This disclosure is being madepursuant to the Care Everywhere program and may not contain all information available regarding this patient. Last updated 18.[facility] Allergies No known active allergies Medications * Be aware that medications may not be up to date on this document. Alwaysverify current medications with the patient. * acetaminophen (Tylenol) 500 MG tablet(Started 03/17/2024) Take 2 (two) tablets by mouth every 6 hours as needed * hydrOXYzine HCl (Atarax) 25 MG tablet(Started 03/17/2024) Take 1 (one) tablet by mouth 3 times daily as needed * FLUoxetine (PROzac) 10 MG capsule(Started 07/12/2024) Take 1 (one) capsule by mouth every morning * ALPRAZolam (Xanax) 0.5 MG tablet(Started 08/09/2024) Take 1 (one) tablet by mouth once daily as needed (panic attack) Ended Medications* ALPRAZolam (Xanax) 0.5 MG tablet(Started 07/12/2024) (Discontinued) Take 1 (one) tablet by mouth once daily as needed (panic attack) Active Problems Problem Noted Date Diagnosed Date ERNESTO (generalized anxiety disorder) 07/12/2024 Immunizations * DTAP/HEP B/IPV(Given 05/20/2005, 01/04/2005, 2004) * DTAP/IPV(Given 01/29/2010) * DTP(Given 01/29/2010, 05/20/2005, 01/04/2005, 2004) * DTaP VACCINE IM (6wk-6yrs)(Given 06/05/2006) * HEP A PEDS 2 DOSE(Given 04/16/2007, 06/05/2006) * HEP B VACCINE(Given 05/20/2005, 01/04/2005, 2004) * HEP B VACCINE, PED/ADOL(Given 2004) * HIB-PRP-OMP 3 DOSE(Given 06/05/2006, 05/20/2005, 01/04/2005, 2004) * Human Papilloma Virus Ninevalent Vaccine(Given 03/15/2017) * INFLUENZA VACCINE, QUADR. (AFLURIA, FLUZONE QUADRIVALENT; 6MO+) (IIV4)(Given 05/20/2005) * MENINGOCOCCAL CONJUGATE (MCV4P)(Given 03/15/2017) * MMR(Given 01/29/2010, 05/20/2005) * PNEUMOCOCCAL PCV7 CONJ, PEDS(Given 06/05/2006, 01/04/2005, 2004) * TDAP (7yrs+)(Given 03/15/2017) * TDAP, HISTORIC VACCINE(Given 01/02/2024) * VARICELLA(Given 01/29/2010, 05/20/2005) Social History Tobacco Use Types Packs/Day Years Used Date Smoking Tobacco: Never Assessed PHQ-2 Answer Date Recorded Patient Health Questionnaire-2 Score 2 07/12/2024 Sex and Gender Information Value Date Recorded Sex Assigned at Not on file Gender Identity Not on file Sexual Orientation Not on file Last Filed Vital Signs Vital Sign Reading Time Taken Comments Blood Pressure 109/74 07/12/2024 1:52 PM SMALL PRODUCTS ASSEMBLER Pulse 97 07/12/2024 1:52 PM SMALL PRODUCTS ASSEMBLER Temperature 36.4 C (97.5 F) 07/12/2024 1:52 PM SMALL PRODUCTS ASSEMBLER Respiratory Rate - - Oxygen Saturation 95% 07/12/2024 1:52 PM SMALL PRODUCTS ASSEMBLER Inhaled Oxygen Concentration - - Weight 83.6 kg (184 lb 3.2 oz) 07/12/2024 1:52 P M SMALL PRODUCTS ASSEMBLER Height 165.1 cm (5' 5 ) 07/12/2024 1:52 PM SMALL PRODUCTS ASSEMBLER Body Mass Index 30.65 07/12/2024 1:52 PM SMALL PRODUCTS ASSEMBLER Care Teams Boiler Operator Helper Relationship Specialty Start Date End Date Brie rBoussard MD [address] [id number] PCP - General Internal Medicine 08/01/24
--- OUTSIDE RECORDS SUMMARY | 2024-08-09 17:10 | XMS_ITS | Encounter Summary ---
Author Organization [facility] Healthcare Address [address] [place] [address] Care Team Providers Care Java Golden Gate Developer Name Role Phone Grace Dickinson Primary Care Provider [phone] Reason for Visit * Reason Comments Headache Encounter Details Date Type Department Care Team (Late st Contact Info) Description 08/09/2024 12:33 AM COMMUNICATION AND OUTREACH MANAGER - 08/09/2024 2:43 AM [facility] Emergency [facility] Emergency Department [address] [place] [address] David Christine MD [address] [place], [place] [id number] Acute non intractable tension-type headache (Primary Dx) Discharge Disposition: Discharge to home or self care Social History Tobacco Use Types Packs/Day Years Used Date Smoking Tobacco: Never Smokeless Tobacco: Never Alcohol Use Standard Drinks/Week Comments Yes 0 (1 standard drink = 0.6 oz pur e alcohol) socially [facility] Utilities Answer Date Recorded In the past 12 months has [facility] [employer], gas, oil, or water [employer] threatened to shut off services in your [...] 03/16/2024 How often do you attend chur ch or sikh services? Patient declined 03/16/2024 Do you belong to any clubs o r organizations such as rastafarian groups, unions, fraezCater or athletic groups, or school groups? Patient [...] staff should administer the PHQ-9) 2 01/31/2023 [facility] [place] of Occupat ional Health - Occupational Stress [...] No 03/16/2024 Housing Stability Vital Sign Answer Adnny e Recorded In the last 12 months, [...] place to sleep or slept in a residential (including now)? No 08/21/2023 Wylie Depression Scale Answer Date Recorded Wylie Depression Scale Total 2 04/02/2024 The thought [...] any time in the past 12 m [facility], were you homeless or living in a residential (including now)? No 03/16/2024 Personal Safety Answer Date Recorded Have you ever been in or are you currently in a harmful physical or emotional relationship or is someone making you feel afraid or unsafe? Denies 08/08/2024 Comments No Sex and Gender Information Value Date Recorded Sex Assigned at Not on file Legal Sex Female 7:02 PM COMMUNICATION AND OUTREACH MANAGER Gender Identity Not on file Sexual Orientation Not on file documented as of this encounter Last Filed Vital Signs Vital Sign Reading Time Taken Comments Blood Pressure 125/85 08/08/2024 9:01 PM COMMUNICATION AND OUTREACH MANAGER Pulse 103 08/08/2024 9:01 PM COMMUNICATION AND OUTREACH MANAGER Temperature 36.8 C (98.2 F) 08/08/2024 9:01 PM COMMUNICATION AND OUTREACH MANAGER Respiratory Rate 22 08/08/2024 9:01 PM COMMUNICATION AND OUTREACH MANAGER Oxygen Saturation 95% 08/08/2024 9:01 PM COMMUNICATION AND OUTREACH MANAGER Inhaled Oxygen Concentration - - Weight 81.6 kg (180 lb) 08/08/2024 9:01 PM COMMUNICATION AND OUTREACH MANAGER Height - - Body Mass Index 29.95 07/26/2024 1:07 PM COMMUNICATION AND OUTREACH MANAGER documented in this encounter Discharge Instructions * Discharge Instructions* Zenaida Roland MD - 08/09/2024 1:52 AM COMMUNICATION AND OUTREACH MANAGER You came into the ED with a headache and jaw pain. Your headache could be caused by clenching or grinding your teeth at night and I recommend seeing a dentist. The medical pills can also cause headache as a side effect along with vaginal bleeding and cramping. There was nothing was concerning enough for you to need blood work, imaging, or admission. Follow up with your PCP about getting your thyroid (TSH) checked. I sent fluoxetine 20mg to your pharmacy incase you need it. Start taking the 10mg pills you have athome for one week then increase to 20mg daily. It will take 6-8 weeks to see if the medication is truly working. You should also try to find a therapist for cognitive behavioral therapy. Wishing you the best! UNICATION AND OUTREACH MANAGER * Attachments The following attachments cannot be sent through Care Everywhere. * Acute Headache (General Information) (Panamanian) documented in this encounter Medications at Time of Discharge acetaminophen (TYLENOL) 500 mg tablet Take 2 tablets (1,000 mg total) by mouth every 6 (six) hours as needed for pain for up to 30 doses 60 tablet 03/17/2024 acetic acid-hydrocortisone otic solution Administer 2 drops into the right ear 2 (two) times a day 10 mL 1 01/17/2024 escitalopram (LEXAPRO) 5 mg tabletIndications:G eneralized Anxiety Disorder Take 1 tablet (5 mg total) by mouth daily 30 tablet 1 04/05/2024 famotidine (PEPCID) 20 mg tabletIndications:G astroesophageal reflux disease without esophagitis Take 1 tablet (20 mg total) by mouth 2 (two) times a day 60 tablet 11 11/13/2023 5 FLUoxetine (PROzac) 20 mg capsule Take 1 capsule (20 mg total) by mouth daily 30 capsule 08/09/2024 6 hydrOXYzine (ATARAX) 25 mg tabletIndications:a nxiety Take 1 tablet (25 mg total) by mouth 3 (three) times a day as needed for anxiety 30 tablet 1 03/17/2024 ibuprofen (ADVIL,MOTRIN) 600 mg tabletIndications:P ain Take 1 tablet (600 mg total) by mouth every 6 (six) hours as needed for pain for up to 30 doses 30 tablet 03/17/2024 labetaloL (NORMODYNE,TRANDATE ) 200 mg tablet Take 2 tablets (400 mg total) by mouth 2 (two) times a day 120 tablet 1 04/05/2024 5 ondansetron ODT (ZOFRAN-ODT) 4 mg disintegrating tablet Take 1 tablet (4 mg total) by mouth every 8 (eight) hours as needed for nausea or vomiting 20 tablet 1 09/20/2023 polyethylene glycol (MIRALAX) 17 gram/dose bulk powder Take 17 g by mouth daily As needed to have one bowel movement daily. 510 g 03/17/2024 vitamin ferrous fumarate-folic () 28 mg iron- 800 mcg tablet Take 1 tablet by mouth daily 30 tablet 11 09/20/2023 5 Vitamin Plus Low Iron 27 mg iron- 1 mg tablet Take 1 tablet by mouth daily 09/21/2023 pyridoxine (VITAMIN B6) 25 mg tablet Take 1 tablet (25 mg total) by mouth daily 90 tablet 1 09/20/2023 5 senna-docusate (PERICOLACE) 8.6-50 mg Take 1 tablet by mouth daily Do not take if having diarrhea 30 tablet 03/17/2024 documented as of this encounter Ordered Prescriptions Prescription Sig Dispense Quantity Refills Last Filled Start Date End Date FLUoxetine (PROzac) 20 mg capsule Take 1 capsule (20 mg total) by mouth daily 30 capsule 08/09/2024 documented in this encounter Discharge Disposition Disposition Code Departure Means Destination Comment s Discharge to home or self care Other documented in this encounter ED Notes * Zenaida Roland MD - 08/09/2024 1:16 AM CST HPI Chief Complaint Patient presents with Headache 19F hx anxiety, panic attacks p/w WINTERS x4 days with some nasuea. Pt states she can't tell if this is all simply attributed to her anxiety. States she also had a mifepristone earlier this evening. Pt states she has been under a lot of stress at home with a 4mo old baby. Has previously been evaluated for chest pain with, EKG, stress test, echo, all negative. CP attributed to anxiety/somatization. 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 Family History Problem Relation Age of Onset No Known Problems Paternal Grandfather No Known Problems Paternal Grandmother No Known Problems Maternal Grandmother Sudden Cardiac Maternal Grandfather Heart attack Maternal Grandfather Diabetes Maternal Grandfather Heart disease Maternal Grandfather No Known Problems Father Diabetes Mother No Known Problems Brother No Known Problems Brother No Known Problems Brother No Known Problems Sister No Known Problems Sister Diabetes Mother's Brother Heart attack Maternal Great-Grandfather Sudden Cardiac Maternal Great-Grandfather Social History Tobacco Use Smoking status: Never Smokeless tobacco: Never Vaping Use Vaping status: user, current status unknown Substance and Sexual Activity Alcohol use: Yes Comment: socially Drug use: Not Currently Types: Marijuana Sexual activity: Yes control/protection: None Social History Social History Narrative Pt currently with her mother, but looking for a place on her own with boyfriend. Review of Systems Review of Systems All other systems reviewed and are negative. Physical Exam ED Triage Vitals [08/08/24 2101] Temp Pulse Resp BP SpO2 36.8 ??C (98.2 ??F) 103 22 125/85 95 % Temp src Heart Rate Source Patient Position BP Location FiO2 (%) Oral -- -- -- -- Height Height Method Weight Weight Method -- -- 81.6 kg (180 lb) Stated Physical Exam HENT: Head: Jaw: Tenderness present. Cardiovascular: Rate and Rhythm: Tachycardia present. Pulmonary: Effort: Pulmonary effort is normal. Neurological: General: No focal deficit present. Mental Status: She is alert and oriented to person, place, and time. Cranial Nerves: No cranial nerve deficit. Sensory: Sensation is intact. Motor: Motor function is intact. 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 Headache without any neuro defecits or alarm symptoms today. Mifepristone can cause headaches which could be contributing. Will provide reassurance and recommend restarting her SSRI and finding a therapist. Risk OTC drugs. Prescription drug management. Attending Summary of Care ED Course as of 08/09/24 0116 Time: 08/09 0108 Comment: I have seen and examined the patient on 08/09/24. I agree with the findings and plan of care as documented in the resident's note. 19F hx anxiety here for WINTERS. Had mifeprestone at 630 pm. Has been having WINTERS for 4-5 days now gettingworse. By: David Christine MD No diagnosis found. Zenadia Roland MD Resident 08/09/24 0631 Cosigned by David Christine MD at 08/09/2024 6:49 AM COMMUNICATION AND OUTREACH MANAGER UNICATION AND OUTREACH MANAGER UNICATION AND OUTREACH MANAGER * Neno Haddad RN - 08/08/2024 8:58 PM CST Pt presents via POV c/o throbbing headache in the back of her head, anxiety, and her jaw feels tired. Pt endorses taking mifepristone at 1830, and now just generally feels unwell. AOx4 and ambulatory UNICATION AND OUTREACH MANAGER documented in this encounter Plan of Treatment Not on file documented as of this encounter Visit Diagnoses Diagnosis Acute non intractable tension-type headache- Primary documented in this encounter Administered Medications Inactive Administered Medications - up to 3 most recent administrations Medication Order MAR Action Action Date Dose Rate Site acetaminophen (TYLENOL) tablet 650 mg 650 mg, oral, Once, On Mon08/09/24 at 0117, For 1 dose Given 08/09/2024 1:30 AM COMMUNICATION AND OUTREACH MANAGER 650 mg ibuprofen (ADVIL,MOTRIN) tablet 600 mg 600 mg, oral, Once, On Mon08/09/24 at 0117, For 1 dose, Do not crush, break, or open. Given 08/09/2024 1:30 AM COMMUNICATION AND OUTREACH MANAGER 600 mg documented in this encounter Active and Recently Administered Medications Times are shown in COMMUNICATION AND OUTREACH MANAGER. Scheduled Medication Order 08/07/2024 08/08/2024 08/09/2024 acetaminophen (TYLENOL) tablet 650 mg (COMPLETED) 650 mg, oral, Once, On Mon08/09/24 at 0117, For 1 dose 0130 (Given - Provid er: Kat Virgen RN) ibuprofen (ADVIL,MOTRIN) tablet 600 mg (COMPLETED) 600 mg, oral, Once, On Mon08/09/24 at 0117, For 1 dose, Do not crush, break, or open. 0130 (Given - Provid er: Kat Virgen RN) documented in this encounter Care Teams Java Golden Gate Developer Relationship Specialty Start Date End Date Grace Dickinson PA [address] [place] [address] PCP - General Family Medicine 01/31/23 documented as of this encounter
--- OUTSIDE RECORDS SUMMARY | 2024-08-09 17:10 | XMS_ITS | Clinical Summary ---
Author Organization [email or web address] Address [address] [place] [address] Care Team Providers Care Machine Shop Helper Name Role Phone Brie Broussard MD Primary Care Provider [phone] Source Comments [email or web address],non-owned Affiliates and Associated Physician Practices is amultiple site organization consisting of ambulatory clinics and hospital sitesin [place], [place], [place] and [place]. This disclosure is being madepursuant to the Care Everywhere program and may not contain all information available regarding this patient. Last updated [email or web address] Allergies No known active allergies Medications * Be aware that medications may not be up to date on this document. Alwaysverify current medications with the patient. Medication Sig Dispensed Refills Start Date End Date Status acetaminophen (Tylenol) 500 MG tablet Take 2 (two) tablets by mouth every 6 hours as needed 03/17/2024 Active hydrOXYzine HCl (Atarax) 25 MG tablet Take 1 (one) tablet by mouth 3 times daily as needed 03/17/2024 Active FLUoxetine (PROzac) 10 MG capsule Take 1 (one) capsule by mouth every morning 30 capsule 07/12/2024 Active ALPRAZolam (Xanax) 0.5 MG tablet Take 1 (one) tablet by mouth once daily as needed (panic attack) 15 tablet 08/09/2024 Active ALPRAZolam (Xanax) 0.5 MG tablet Take 1 (one) tablet by mouth once daily as needed (panic attack) 15 tablet 07/12/2024 08/01/2024 Discontinued (Reorder) Active Problems Problem Noted Date Diagnosed Date ERNESTO (generalized anxiety disorder) 07/12/2024 Encounters Date Type Department Care Team Description 08/02/2024 Refill [facility] - Internal Med [address] [place] [address] Brie Broussard MD Refill Request 07/12/2024 1:30 PM TRUER PINION AND WHEEL Office Visit [facility] - [facility] Med [address] [facility] [place] [address] Brie Broussard MD ERNESTO (generalized anxiety disorder) (Primary Dx); Need for hepatitis C screening test; Agoraphobia with panic disorder; Weight gain 07/12/2024 Travel from Last 3 Months Immunizations Name Administration Dates Next Due DTAP/HEP B/IPV 05/20/2005,01/04/2005,2004 DTAP/IPV 01/29/2010 DTP 01/29/2010, 5,01/04/2005,10/21 DTaP VACCINE IM (6wk-6yrs) 06/05/2006 HEP A PEDS 2 DOSE 04/16/2007,06/05/2006 HEP B VACCINE 05/20/2005,01/04/2005,2004 HEP B VACCINE, PED/ADOL 2004 HIB-PRP-OMP 3 DOSE 06/05/2006, 5,01/04/2005,10/21 Human Papilloma Virus Nineva lent Vaccine 03/15/2017 INFLUENZA VACCINE, QUADR. (A FLURIA, FLUZONE QUADRIVALENT; 6MO+) (IIV4) 05/20/2005 MENINGOCOCCAL CONJUGATE (MCV4P) 03/15/2017 MMR 01/29/2010,05/20/2005 PNEUMOCOCCAL PCV7 CONJ, PEDS 06/05/2006,01/05/20 05,2004 TDAP (7yrs+) 03/15/2017 TDAP, HISTORIC VACCINE 01/02/2024 VARICELLA 01/29/2010,05/20/2005 Social History Tobacco Use Types Packs/Day Years Used Date Smoking Tobacco: Never Assessed PHQ-2 Answer Date Recorded Patient Health Questionnaire-2 Score 2 07/12/2024 Sex and Gender Information Value Date Recorded Sex Assigned at Not on file Gender Identity Not on file Sexual Orientation Not on file Last Filed Vital Signs Vital Sign Reading Time Taken Comments Blood Pressure 109/74 07/12/2024 1:52 PM TRUER PINION AND WHEEL Pulse 97 07/12/2024 1:52 PM TRUER PINION AND WHEEL Temperature 36.4 C (97.5 F) 07/12/2024 1:52 PM TRUER PINION AND WHEEL Respiratory Rate - - Oxygen Saturation 95% 07/12/2024 1:52 PM TRUER PINION AND WHEEL Inhaled Oxygen Concentration - - Weight 83.6 kg (184 lb 3.2 oz) 07/12/2024 1:52 P M TRUER PINION AND WHEEL Height 165.1 cm (5' 5 ) 07/12/2024 1:52 PM TRUER PINION AND WHEEL Body Mass Index 30.65 07/12/2024 1:52 PM TRUER PINION AND WHEEL Plan of Treatment Upcoming Encounters Date Type Department Care Team (Late st Contact Info) Description 08/12/2024 1:00 PM TRUER PINION AND WHEEL Office Visit [facility] - Internal Med [address] [place] [phone] Hank Salomon 10/18/2024 1:00 PM CDT Video Visit [facility] - Internal [address] [phone] Brie Broussard MD [address] [place] [phone] Health Maintenance Due Date Last Done Comments HPV VACCINE (2 - 2-dose series) 09/12/2017 03/15/2017 HIV SCREENING 2019 MENINGOCOCCAL (Group B) VACCINE (1 of 2 - Standard) 2020 HEPATITIS C SCREENING 04/15/2022 COVID-19 VACCINE (1 - season) 2024 INFLUENZA VACCINE (#1) 2024 05/20/2005 CHLAMYDIA/GONORRHEA SCREENING 04/11/2025 04/11/2024 (Done Outside Per Report) DTAP/TDAP/TD VACCINES (8 - Td or Tdap) 01/01/2034 01/02/2024, 03/15/2017, 01/29/2010, Additional history exists ZOSTER VACCINE (1 of 2) 2054 HEPATITIS B VACCINE Completed 05/20/2005, 05/20/2005, 01/04/2005, Additional history exists HIB VACCINE Completed 06/05/2006, 04/27, 01/04/2005, Additional history exists PNEUMOCOCCAL VACCINE Completed 06/05/2006, 01/04/2005, 2004 MENINGOCOCCAL VACCINE Aged Out 03/15/2017 No maki najma eligible based on patient's age to complete this topic DEPRESSION SCREENING Completed 07/12/2024 Care Teams Machine Shop Helper Relationship Specialty Start Date End Date Brie Broussard MD [address] [facility] MED [address] [place] [phone] PCP - General Internal Medicine 08/01/24
--- OUTSIDE RECORDS SUMMARY | 2024-08-09 17:10 | XMS_ITS | Referral Summary ---
Author Organization [facility] Address [address] [place] [address] Care Team Providers Care Pantograph I Engraver Name Role Phone Brie Broussard MD Primary Care Provider [phone] Source Comments [facility],non-owned Affiliates and Associated Physician Practices is amultiple site organization consisting of ambulatory clinics and hospital sitesin [place], [place], [place] and [place]. This disclosure is being madepursuant to the Care Everywhere program and may not contain all information available regarding this patient. Last updated 18.[facility] Encounters Date Type Department Care Team Description 08/02/2024 Refill [facility] - Internal Med [address] [place] [phone] Brie Broussard MD Refill Request 07/12/2024 Travel 07/12/2024 1:30 PM MACHINE ASSEMBLER FOR PULLER OVER Office Visit [facility] - Internal Med [address] [place] [phone] Brie Broussard MD ERNESTO (generalized anxiety disorder) (Primary Dx); Need for hepatitis C screening test; Agoraphobia with panic disorder; Weight gain from Last 3 Months Allergies No known active allergies Medications * [...] Date ERNESTO (generalized anxiety disorder) 07/12/2024 Immunizations Name Administration Dates Next Due DTAP/HEP [...] Comments Blood Pressure 109/74 07/12/2024 1:52 PM MACHINE ASSEMBLER FOR PULLER OVER Pulse 97 07/12/2024 1:52 PM MACHINE ASSEMBLER FOR PULLER OVER Temperature 36.4 C (97.5 F) 07/12/2024 1:52 PM MACHINE ASSEMBLER FOR PULLER OVER Respiratory Rate - - Oxygen Saturation 95% 07/12/2024 1:52 PM MACHINE ASSEMBLER FOR PULLER OVER Inhaled Oxygen Concentration - - Weight 83.6 kg (184 lb 3.2 oz) 07/12/2024 1:52 P M MACHINE ASSEMBLER FOR PULLER OVER Height 165.1 cm (5' 5 ) 07/12/2024 1:52 PM MACHINE ASSEMBLER FOR PULLER OVER Body Mass Index 30.65 07/12/2024 1:52 PM MACHINE ASSEMBLER FOR PULLER OVER Plan of Treatment Upcoming Encounters Date Type Department Care Team (Late st Contact Info) Description 08/12/2024 1:00 PM MACHINE ASSEMBLER FOR PULLER OVER Office Visit [facility] - Internal Med [address] [place] [phone] Hank Salomon 10/18/2024 1:00 PM CDT Video Visit [facility] - Internal Med [address] [place] [phone] Brie Broussard MD [address] DIV OF INT MED [address] [place] [phone] Care Teams Pantograph I Engraver Relationship Specialty Start Date End Date Brie Broussard MD [address] [facility] OF INT MED [address] [place] [phone] PCP - General Internal Medicine 2/6/25
--- OUTSIDE RECORDS SUMMARY | 2024-08-09 17:10 | XMS_ITS | Referral Summary ---
Author Organization [facility] Address [address] [place] [address] Care Team Providers Care Computer System Technician Name Role Phone Grace Dickinson Primary Care Provider [phone] Encounters Date Type Department Care Team Description 08/09/2024 12:33 AM HOUSEKEEPER NANNY - 08/09/2024 2:43 AM [facility] Emergency [facility] Emergency Department [address] [place] [address] [phone] David Christine MD Acute non intractable tension-type headache (Primary Dx) Discharge Disposition: Discharge to home or self care 08/02/2024 [facility] Care Organization [address] [place] [address] Aston Coronel, WIRE SETTER 08/01/2024 [facility] Outreach [address] [address] Aston Coronel, WIRE SETTER 07/31/2024 [facility] Outreach [facility] Care [address] [address] Aston Coronel, WIRE SETTER 07/26/2024 1:44 PM HOUSEKEEPER NANNY - 07/26/2024 4:14 PM [facility] Emergency [facility] Emergency Department [address] [place] [phone] Chronic chest pain (Primary Dx) Discharge Disposition: Discharge to home or self care from Last 3 Months Allergies No known active allergies Medications vitamin ferrous fumarate-folic () 28 mg iron- 800 mcg tablet Take 1 tablet by mouth daily 30 tablet 11 09/20/19 24 025 Active pyridoxine (VITAMIN B6) [...] reassuring in clinic. Reviewed BH contractions vs [facility] precautions (no improvement with rest, hydration and [...] (02/21/2024): Per chart review: 09/17 BP in [facility] 144/78 -10/18: BP 142/75, repeat manual 130/70. 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 -Discussed [...] (03/30/2022): Added automatically from request for surgery [id number] Assessment & Plan (01/31/2023 9:13 AM CDT): Chronic. Uncontrolled could be related to anxiety and depression, has had workup with Gynecology possible myofascial pain/ pelvic floor dysfunction. May need pelvic ultrasound. May need GI referral. Need to discuss further at next visit or when anxiety is more under control. Immunizations Name Administration Dates Next Due DTP [...] Conjugate 7-Valent 06/05/2006,01/04,2004 Tdap 01/02/2024,03/15/2017 Varicella 01/29/2010,05/20/2005 Social History Tobacco Use Types Packs/Day Years Used Date Smoking Tobacco: Never Smokeless Tobacco: Never Tobacco Cessation:Counseling Given: Not Answered Alcohol Use Standard Drinks/Week Comments Yes 0 (1 standard drink = 0.6 oz pur e alcohol) socially V[employer] Answer Date Recorded In the past 12 months has e [employer], gas, oil, or water [employer] threatened to shut off services in your [...] often do you attend chur ch or caodaism services? Patient declined 03/16/2024 Do you belong to any clubs o r organizations such as bahai groups, unions, fraternal or athletic groups, or [...] staff should administer the PHQ-9) 2 01/31/2023 [facility] Answer Date Recorded [...] place to sleep or slept in a correction (including now)? No 08/21/2023 Savannah Depression Scale Answer Date Recorded Sav[place] Depression Scale Total 2 04/02/2024 The thought [...] any time in the past 12 m [facility], were you homeless or living in a correction (including now)? No 03/16/2024 Personal Safety Answer Date Recorded Have you ever been in or are you currently in a harmful physical or emotional relationship or is someone making you feel afraid or unsafe? Denies 08/08/2024 Comments No Sex and Gender Information Value Date Recorded Sex Assigned at Not on file Legal Sex Female 7:02 PM HOUSEKEEPER NANNY Gender Identity Not on file Sexual Orientation Not on file Last Filed Vital Signs Vital Sign Reading Time Taken Comments Blood Pressure 125/85 08/08/2024 9:01 PM HOUSEKEEPER NANNY Pulse 103 08/08/2024 9:01 PM HOUSEKEEPER NANNY Temperature 36.8 C (98.2 F) 08/08/2024 9:01 PM HOUSEKEEPER NANNY Respiratory Rate 22 08/08/2024 9:01 PM HOUSEKEEPER NANNY Oxygen Saturation 95% 08/08/2024 9:01 PM HOUSEKEEPER NANNY Inhaled Oxygen Concentration - - Weight 81.6 kg (180 lb) 08/08/2024 9:01 PM HOUSEKEEPER NANNY Height 165.1 cm (5' 5 ) 07/26/2024 1:07 PM HOUSEKEEPER NANNY Body Mass Index 29.95 07/26/2024 1:07 PM HOUSEKEEPER NANNY Plan of Treatment Not on file Procedures Procedure Name Priority Date/Time Associated Diagnosis Comments ECG 12-LEAD STAT 07/26/2024 2:48 PM HOUSEKEEPER NANNY XR CHEST PA LATERAL 2 VIEWS ED 07/26/2024 2:31 PM HOUSEKEEPER NANNY EGFR STAT 07/26/2024 2:13 PM HOUSEKEEPER NANNY DIFFERENTIAL AUTO STAT 07/26/2024 2:1 3 PM HOUSEKEEPER NANNY TROPONIN I HIGH-SENSITIVITY SERIES (BASELINE, 2HR, 4HR, 6HR) STAT 07/26/2024 2:13 PM HOUSEKEEPER NANNY COMPREHENSIVE METABOLIC PANEL STAT 07/26/2024 2:13 PM HOUSEKEEPER NANNY CBC WITH AUTO DIFFERENTIAL STAT 07/26/2024 2:13 PM HOUSEKEEPER NANNY N. GONORRHOEAE/C. TRACHOMATIS AMPLIFICATION STAT 04/11/2024 8:48 PM CDT HEPATITIS C ANTIBODY Routine 08/21/2023 11:08 AM HOUSEKEEPER NANNY Encounter for supervision of other normal in first trimester from Last 3 Months or Most Recently Relevant to Health Maintenance Results * (ABNORMAL) ECG 12-LEAD (07/26/2024 2:48 PM HOUSEKEEPER NANNY) Narrative [facility] - 07/26/2024 2:48 PM HOUSEKEEPER NANNY Colton Michelle MD 07/26/2024 2:52 PM ECG [...] Marlene Naqvi MD ECG ORDERABLES Final Result [facility] * XR Chest Pa Lateral 2 Vw (07/26/2024 2:31 PM HOUSEKEEPER NANNY) Anatomical Region Laterality Modality Body, Chest N/A Computed Radiogr aphy 07/26/2024 2:58 PM HOUSEKEEPER NANNY Impressions 07/26/2024 2:58 PM HOUSEKEEPER NANNY A 2 view examination the chest is submitted with comparison 02/08/2023. No pneumonic consolidation. No pulmonary edema. No pneumothorax. No pleural effusion. Heart size normal. Electronically signed by: Triston Teresa M.D., Ph.D Narrative 07/26/2024 2:58 PM HOUSEKEEPER NANNY EXAMINATION: 2 view chest radiograph Procedure Note Triston Teresa MD PhD - 07/26/2024 EXAMINATION: 2 view chest radiograph IMPRESSION: A 2 view examination the chest is submitted with comparison 02/08/2023. No pneumonic consolidation. No pulmonary edema. No pneumothorax. No pleural effusion. Heart size normal. Electronically signed by: Triston Teresa M.D., Ph.D us Susi August PA IMG XR PROCEDURES Final Res ult * Troponin I high-sensitivity series (baseline, 2hr, 4hr, 6hr) (07/26/2024 2:13 PM HOUSEKEEPER NANNY) Trop I hs <4 <=17 ng/L Comment: Interpretive Data For further hscTnI resources including the diagnostic algorithm and an aid in interpretation, copy and paste this link: [email or web address]://bjhlab.testcatalog.org/show/[email or web address]-1 Current Interpretive Data last revised 2020. Blood 07/26/2024 2:13 PM HOUSEKEEPER NANNY 07/26/2024 2:24 PM HOUSEKEEPER NANNY Susi RAHMAN LAB BLOOD ORDERABLES Final Result Performing Organization Address City/[facility]/ZIP Co de Phone Number BRUCE [facility] [place] [address] * eGFR (07/26/2024 2:13 PM HOUSEKEEPER NANNY) eGFR >90 >=60 mL/min/1. 73 m2 Comment: [...] last reviewed 2021. Blood 07/26/2024 2:13 PM HOUSEKEEPER NANNY 07/26/2024 2:24 PM HOUSEKEEPER NANNY Susi RAHMAN LAB BLOOD ORDERABLES Final Result Performing Organization Address City/[facility]/ZIP Co de Phone Number BRUCE [facility] Department [place] [address] * Differential, auto (07/26/2024 2:13 PM HOUSEKEEPER NANNY) Neutrophil abs 4.9 1.5 - 6.5 K/cumm Imm gran abs 0.0 0.0 - 0.1 K/cumm [facility] Lymphocyte abs 1.7 0.8 - 3.3 K/cumm [facility] Monocyte abs 0.3 0.2 - 0.8 K/cumm [facility] Eosinophil abs 0.1 0.0 - 0.5 K/cumm [facility] Basophil abs 0.0 0.0 - 0.1 K/cumm [facility] Neutrophil pct 69.9 % [facility] Comment: Confirmed by smear review Interpretive Data Percent cell count reference ranges are not reported, since discordance with absolute values may lead to misinterpretation of CBC data. Current Interpretive Data was last revised on 2017. Imm gran pct 0.3 % [facility] Comment: Interpretive Data Percent cell count reference ranges are not reported, since discordance with absolute values may lead to misinterpretation of CBC data. Current Interpretive Data was last revised on 2017. Lymphocyte pct 24.1 % [facility] Comment: Interpretive Data Percent cell count reference ranges are not reported, since discordance with absolute values may lead to misinterpretation of CBC data. Current Interpretive Data was last revised on 2017. Monocyte pct 4.4 % [facility] Comment: Interpretive Data Percent cell count reference ranges are not reported, since discordance with absolute values may lead to misinterpretation of CBC data. Current Interpretive Data was last revised on 2017. Eosinophil pct 0.7 % [facility] Comment: Interpretive Data Percent cell count reference ranges are not reported, since discordance with absolute values may lead to misinterpretation of CBC data. Current Interpretive Data was last revised on 2017. Basophil pct 0.6 % [facility] Comment: Interpretive Data Percent cell count reference ranges are not reported, since discordance with absolute values may lead to misinterpretation of CBC data. Current Interpretive Data was last revised on 2017. Blood 07/26/2024 2:13 PM HOUSEKEEPER NANNY 07/26/2024 2:24 PM HOUSEKEEPER NANNY Susi RAHMAN LAB BLOOD ORDERABLES Final Result Performing Organization Address [facility] Co de Phone Number [facility] Department [place] [address] * (ABNORMAL) CBC with auto differential (07/26/2024 2:13 PM HOUSEKEEPER NANNY) [facility] WBC 7.1 3.8 - 9.9 K/cumm Hgb 13.9 11.9 - 15.5 g/dL [facility] Hct 41.0 35.6 - 45.5 % [facility] Plt 182 150 - 400 K/cumm [facility] MPV 13.2(H) 9.1 - 12.3 fL [facility] RBC 4.62 3.90 - 5.20 M/cumm [facility] MCV 88.7 81.3 - 96.4 fL [facility] MCH 30.1 27.1 - 33.3 pg [facility] MCHC 33.9 32.3 - 35.7 g/dL [facility] RDW CV 13.4 11.1 - 14.9 % [facility] RDW SD 43.9 35.7 - 48.1 fL [facility] NRBC abs 0.00 0.00 - 0.01 K/cumm [facility] Blood 07/26/2024 2:13 PM HOUSEKEEPER NANNY 07/26/2024 2:24 PM HOUSEKEEPER NANNY Susi RAHMAN LAB BLOOD ORDERABLES Final Result Performing Organization Address [facility] Co de Phone Number [facility] Department [place] [address] * (ABNORMAL) Comprehensive metabolic panel (07/26/2024 2:13 PM HOUSEKEEPER NANNY) [facility] Sodium 139 135 - 145 mmol/L Potassium, pl 4.9 3.3 - 4.9 mmol/L [facility] Comment:Hemolyzed; Potassium value may be falsely elevated by as much as 1.1-1.6 mmol/L. Suggest redraw and reanalysis. Chloride 105 97 - 110 mmol/L [facility] CO2 24 22 - 32 mmol/L [facility] Anion gap 10 2 - 15 mmol/L [facility] BUN 8 6 - 25 mg/dL [facility] Creatinine 0.70 0.60 - 1.10 mg/dL [facility] Glucose 85 70 - 199 mg/dL [facility] Comment: Interpretive Data Fasting glucose [...] classification and Diagnosis of Diabetes Diabetes Care 202; 46: S19-S40. Current interpretive data was last revised 2022. Calcium 9.1 8.5 - 10.3 mg/dL [facility] Bilirubin, total 0.3 0.1 - 1.2 mg/dL [facility] Protein, pl 7.3 6.5 - 8.5 g/dL [facility] Albumin 4.0 3.5 - 5.0 g/dL [facility] Alk phos 76 40 - 130 Units/L [facility] Comment:Hemolyzed; result ma y be falsely decreased ALT 17 7 - 45 Units/L [facility] AST 47(H) 10 - 45 Units/L [facility] Comment:Hemolyzed; result ma y be falsely elevated Blood 07/26/2024 2:13 PM HOUSEKEEPER NANNY 07/26/2024 2:24 PM HOUSEKEEPER NANNY us Susi RAHMAN LAB BLOOD ORDERABLES Final Result [facility] [place] [address] * N. gonorrhoeae/C. trachomatis Amplification Urine (04/11/2024 8:48 PM CDT) Pathologist [facility] C. trachomatis Not Detected Not Detected [facility] N. gonorrhoeae Not Detected Not Detected [facility] Comment: Interpretive Data This assay detects Chlamydia trachomatis and Neisseria gonorrhoeae by nucleic acid amplification testing (NAAT). This assay has been cleared by the [place] Food and Drug administration. The performance characteristics of this test have been verified by the [facility] Molecular Infectious Disease laboratory. The performance characteristics of this test have not been evaluated in individuals less than 14 years of age. Current Interpretive Data last revised 2023. Urine (None) 04/11/2024 8:48 PM CDT 04/11/2024 8:57 PM CDT Dat Reyes NP LAB MICROBIOLOGY - GENER AL ORDERABLES Final Result [facility] Department [place] [address] [facility] * Hepatitis C antibody Blood (08/21/2023 11:08 AM HOUSEKEEPER NANNY) Hep C Ab Nonreactive Nonreactive [facility] Comment:Antibodies to HCV no t detected. Does NOT exclude the possibility of recent exposure to HCV. Current interpretive data was last revised on 22 Blood 08/21/2023 11:0 8 AM HOUSEKEEPER NANNY 08/21/2023 11:39 AM HOUSEKEEPER NANNY Shelbi Eugene NP LAB MICROBIOLOGY - GENERAL O RDERABLES Final Result Performing Organization Address City/[facility]/ZIP Co de Phone Number [facility] Department [place] [address] from Last 3 Months or Most Recently Relevant to Health Maintenance Insurance [facility] Member Subscriber Plan / Payer (Ef fective 2021-Present) Name:Bebohamiltondaniel Radhika Relation to Subscriber:Self Name:Radhika Qureshi Payer ID:[id number] (NAIC) Group ID:Not on file Type:MEDICAID RISK OTHER Address: ATTN: CLAIMS DEPT [address] [facility] [place] [address] [facility] Advance Directives For more information, please contact: [phone] * Full Code (Latest Code Status on File) Date Activated Date Inactivated Comments 03/15/2024 1:52 AM 03/17/2024 7:18 PM * Full Code Date Activated Date Inactivated Comments 03/13/2024 9:40 PM 03/15/2024 1:52 AM Full CPR in case of cardiopulmonary arrest Care Teams Computer System Technician Relationship Specialty Start Date End Date Grace Dickinson PA [address] [place] [address] PCP - General Family Medicine 01/31/23
[2024-08-09 17:18] VITALS: BP 117/70; PULSE 92; RESP 15; TEMP 36.1; O2SAT 100
[2024-08-09 17:41] LABS: Glucose Point of Care 92 mg/dl (65-105)
[2024-08-09 17:44] VITALS: BP 117/67; PULSE 79
[2024-08-09 17:46] VITALS: BP 112/58; PULSE 75
[2024-08-09 17:48] VITALS: BP 113/68; PULSE 91
[2024-08-09 18:05] LABS: EDUAAPPEAR Cloudy; EDUABILI Negative (Negative); EDUABLOOD Negative (Negative); EDUACOLOR1 Dark; EDUAGLUCOSE Negative (Negative); EDUAKETONE Negative (Negative); EDUALEUKO Trace (Negative); EDUANITRATE Negative (Negative); EDUAPROTEIN Negative (Negative); EDUAUROBILI 0.2
== END 2024-08-09 18:11 | disposition home or self-care (01) ==
PROVIDERS: Emergency Provider Nurse Practitioner Family
DX: G44.209 Tension-type headache, unspecified, not intractable (principal); R53.83 Other fatigue; R42 Dizziness and giddiness
CPT/HCPCS: 81003; 82948; 87086; 99213; G0463